=== PATIENT | male | born 1970 | race Asian ===

== ENCOUNTER 2019-08-19 12:12 | Outpatient (CLI) | payer OTHER ==
--- NOTE | 2019-08-19 13:32 | CT ---
CT LEFT FOOT PERFORMED WITHOUT CONTRAST ENHANCEMENT: Date: 08/19/2019 HISTORY: Patient having medial-sided pain after kicking a metal pole with foot. COMPARISON: None. FINDINGS: Visualized soft tissues appear unremarkable. No fluid collections. No signs for hematoma. Minimal arthritic changes of the tarsal bone region are seen with some minimal spur formation of the talonavicular joint. There is a Type II accessory navicular present. There is some cystic change todd g the synchondrosis that can be a fairly typical finding associated with this. If there is suspicion of injury such as a synchondrosis injury, MRI may be helpful in assessment. IMPRESSION: 1. No evidence of fracture. 2. 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 This is not necessarily an indication of a synchondrosis injury, but if p ain is specifically related to this area along the medial side of the midfoot, then MRI may be helpfu l in assessment. POS: [facility]ATA
== END 2019-08-19 12:13 | disposition home or self-care (01) ==
LOC: BICCT 12:12
PROVIDERS: ATTEND Family Medicine
DX: S90.32XD Contusion of left foot, subsequent encounter (principal); M85.672 Other cyst of bone, left ankle and foot